=== PATIENT | female | born 1940 | race Hispanic/Latino ===

== ENCOUNTER 2017-08-03 17:41 | Emergency (ER) | payer MEDICARE, OTHER ==
[2017-08-03 17:41] VITALS: BMI 34.4
[2017-08-03 17:57] VITALS: BP 157/74; PULSE 64; RESP 18; TEMP 98.2; O2SAT 99
--- NOTE | 2017-08-03 18:32 | ED PDOC ---
Lower Extremity Pain/Injury Time Seen by Provider: 08/03/17 18:06 Chief Complaint (Nursing): Lower Extremity Problem/Injury Chief Complaint (Provider): Leg pain History Per: Patient Additional Complaint(s): c/o left pain, specifically to knee, and swelling x 1 day. Denies trauma. No fever or chills. Known hx of arthritis Past Medical History Reviewed: Historical Data, Nursing Documentation, Vital Signs Vital Signs: Last Vital Signs Temp 98.2 F 08/03/17 17:54 Pulse 64 08/03/17 17:54 Resp 18 08/03/17 17:54 BP 157/74 H 08/03/17 17:54 Pulse Ox 99 08/03/17 17:54 - Medical History PMH: Alzheimer's Disease, Arthritis, Asthma, Bronchitis, COPD, Dementia, Depression, Diabetes, HTN, Hypercholesterolemia Denies: Hepatitis, HIV, Chronic Kidney Disease, Seizures, Sexually Transmitted Disease - Surgical History Surgical History: Appendectomy, Cholecystectomy, (x4) - Family History Family History: States: Unknown Family Hx - Living Arrangements Living Arrangements: With Family - Social History Current smoker - smoking cessation education provided: No Alcohol: None Drugs: Denies - Immunization History Hx Influenza Vaccination: Yes (04/18/15) Hx Pneumococcal Vaccination: Yes (06/19/13) - Home Medications Home Medications: Ambulatory Orders Medication Instructions Recorded Albuterol 0.083% [Albuterol 0.083% 3 ml IH Q6H PRN 02/06/15 Inhal Isabell (2.5 mg/3 ml) UD] Omeprazole 20 mg PO DAILY 06/21/15 Acetaminophen [Tylenol 325mg tab] 650 mg PO Q6 PRN #0 tab 07/03/15 Insulin Detemir [Levemir] 20 units SC HS #0 vial 07/03/15 Diphenhydramine Hydrochlorid 25 mg PO Q8 PRN 07/09/15 [Benadryl] Aluminum Magnesium 30 ml PO Q4 PRN 07/12/15 Hydroxide/Simethicone 30 M Magnesium Hydroxide [Milk Of 400 mg PO DAILY PRN 07/12/15 Magnesia] Aspirin [Aspirin Chewable] 81 mg PO DAILY 07/15/15 Fluticasone/Salmeterol 250/50 1 puff IH Q12 07/16/15 [Advair Diskus 250/50] Aspirin [Aspirin Chewable] 81 mg PO DAILY #0 chew 07/25/15 Atorvastatin [Lipitor] 10 mg PO HS #0 tab 07/25/15 Bisoprolol [Zebeta] 5 mg PO DAILY #0 tab 07/25/15 Cholecalciferol [Vitamin D 1000 IU] 1,000 iu PO DAILY #0 tab 07/25/15 DULoxetine [Cymbalta] 60 mg PO DAILY #0 ecc 07/25/15 Fluticasone/Salmeterol 250/50 1 puff IH Q12 #0 puff 07/25/15 [Advair Diskus 250/50] Insulin Detemir [Levemir] 20 units SC HS #0 vial 07/25/15 LORazepam [Ativan] 1 mg PO TID PRN #0 tab 07/25/15 Pantoprazole [Protonix EC Tab] 40 mg PO DAILY #0 ect 07/25/15 Risperidone [Risperdal M-TAB] 1 mg PO HS #0 odt 07/25/15 Cephalexin [cephalexin] 500 mg PO BID #20 cap 03/02/16 Ibuprofen [Motrin] 600 mg PO Q6 #20 tab 08/03/17 - Allergies Allergies/Adverse Reactions: Allergies Allergy/AdvReac Type Severity Reaction Status Date / Time No Known Allergies Allergy Verified 07/15/15 21:47 Review of Systems ROS Statement: Except As Marked, All Systems Reviewed And Found Negative Musculoskeletal: Positive for: Leg Pain Physical Exam - Reviewed Nursing Documentation Reviewed: Yes Vital Signs Reviewed: Yes - Physical Exam Appears: Positive for: Well, Non-toxic, No Acute Distress Head Exam: Positive for: ATRAUMATIC, NORMAL INSPECTION, NORMOCEPHALIC Skin: Positive for: Normal Color, Warm, DRY Eye Exam: Positive for: EOMI, Normal appearance, PERRL ENT: Positive for: Normal ENT Inspection Neck: Positive for: Normal, Painless ROM Cardiovascular/Chest: Positive for: Regular Rate, Rhythm Respiratory: Positive for: CNT, Normal Breath Sounds Gastrointestinal/Abdominal: Positive for: Normal Exam, Bowel Sounds, Soft Back: Positive for: Normal Inspection Extremity: Positive for: Normal ROM, Other (no erythema or ecchymosis). Negative for: Tenderness, Deformity, Swelling Neurologic/Psych: Positive for: Alert, Oriented - ECG O2 Sat by Pulse Oximetry: 99 Medical Decision Making Medical Decision Making: Pt medicated with Tylenol PO, reports pain improved after medications. XR IMPRESSION: No fracture or dislocation. Limited examination. 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 US IMPRESSION: No evidence of deep venous thrombosis in either leg. Disposition - Clinical Impression Clinical Impression: Knee pain - Patient ED Disposition Is Patient to be Admitted: No - Disposition Disposition: Routine/Home Disposition Time: 20:00 Condition: STABLE Prescriptions: Ibuprofen [Motrin] 600 mg PO Q6 #20 tab Instructions: Arthralgia (ED) Forms: [facility] (Swiss) Print Language: HUNGARIAN
--- NOTE | 2017-08-03 20:47 | US ---
EXAM: US Duplex Bilateral Lower Extremity Veins EXAM DATE/TIME: 08/03/2017 6:21 PM CLINICAL HISTORY: 77 years old, female; Pain; Leg, lower; Bilateral TECHNIQUE: Real-time ultrasound scan of the veins of the bilateral lower extremities with color Doppler flow, spectral waveform analysis and compression. COMPARISON: No relevant prior studies available. FINDINGS: Normal-appearing compressibility, flow and augmentation response are seen within the common femoral, femoral and popliteal veins bilaterally. Normal flow and augmentation response are seen in the posterior tibial veins bilaterally. IMPRESSION: No evidence of deep venous thrombosis in either leg.
--- NOTE | 2017-08-04 13:09 | RAD ---
PROCEDURE: Bilateral Knee Radiographs. HISTORY: pain COMPARISON: None. FINDINGS: Examination technically limited. BONES: Right Knee: Normal. No fracture. Left Knee: Normal. No fracture. JOINTS: Right Knee: Limited evaluation. 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 No articular erosion. Left knee: Limited evaluation. 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 No articular erosion. SOFT TISSUES: Right Knee: Normal. Left Knee: Normal. JOINT EFFUSION: Right Knee: None. Left Knee: None. OTHER FINDINGS: None. IMPRESSION: No fracture or dislocation. Limited examination. 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
== END 2017-08-03 20:33 | disposition home or self-care (01) ==
LOC: H.ER 17:41
DX: M17.12 Unilateral primary osteoarthritis, left knee (principal); F02.80 Dementia in other diseases classified elsewhere, unspecified severity, without behavioral disturbance, psychotic disturbance, mood disturbance, and anxiety; G30.9 Alzheimer's disease, unspecified; J44.9 Chronic obstructive pulmonary disease, unspecified; E11.9 Type 2 diabetes mellitus without complications; E78.00 Pure hypercholesterolemia, unspecified; F32.9 Major depressive disorder, single episode, unspecified; I10 Essential (primary) hypertension; Z79.4 Long term (current) use of insulin; Z79.82 Long term (current) use of aspirin

== ENCOUNTER 2017-12-27 15:50 | Emergency (ER) | payer MEDICARE, OTHER ==
[2017-12-27 15:50] VITALS: BMI 34.4
[2017-12-27 15:59] VITALS: PULSE 61; TEMP 98.5; O2SAT 98
--- NOTE | 2017-12-27 16:26 | ED PDOC ---
HPI: Skin/Bite Injury Time Seen by Provider: 12/27/17 16:01 Chief Complaint (Nursing): Abnormal Skin Integrity Chief Complaint (Provider): Skin rash History Per: Family History/Exam Limitations: clinical condition (patient with dementia) Onset/Duration Of Symptoms: Days Current Symptoms Are (Timing): Still Present Location Of Injury: Right: Back, Chest Quality Of Symptoms: Painful Additional Complaint(s): 77yo female with history of dementia, brought to ER by daughter for evaluation of a painful rash on the right upper chest and right back, which she noted on the patient this morning. She denies any fever, chills, or other complaints from the patient. Past Medical History Reviewed: Historical Data, Nursing Documentation, Vital Signs Vital Signs: Last Vital Signs Temp 98.5 F 12/27/17 15:56 Pulse 61 12/27/17 16:42 Resp 18 12/27/17 16:42 BP 150/56 L 12/27/17 16:42 Pulse Ox 98 12/27/17 16:42 - Medical History PMH: Alzheimer's Disease, Arthritis, Asthma, Bronchitis, COPD, Dementia, Depression, Diabetes, HTN, Hypercholesterolemia Denies: Hepatitis, HIV, Chronic Kidney Disease, Seizures, Sexually Transmitted Disease - Surgical History Surgical History: Appendectomy, Cholecystectomy, (x4) - Family History Family History: States: Unknown Family Hx - Living Arrangements Living Arrangements: With Family - Immunization History Hx Influenza Vaccination: Yes (04/18/15) Hx Pneumococcal Vaccination: Yes (06/19/13) - Home Medications Home Medications: Ambulatory Orders Medication Instructions Recorded Albuterol 0.083% [Albuterol 0.083% 3 ml IH Q6H PRN 02/06/15 Inhal Isabell (2.5 mg/3 ml) UD] Omeprazole 20 mg PO DAILY 06/21/15 Acetaminophen [Tylenol 325mg tab] 650 mg PO Q6 PRN #0 tab 07/03/15 Insulin Detemir [Levemir] 20 units SC HS #0 vial 07/03/15 Diphenhydramine Hydrochlorid 25 mg PO Q8 PRN 07/09/15 [Benadryl] Aluminum Magnesium 30 ml PO Q4 PRN 07/12/15 Hydroxide/Simethicone 30 M Magnesium Hydroxide [Milk Of 400 mg PO DAILY PRN 07/12/15 Magnesia] Aspirin [Aspirin Chewable] 81 mg PO DAILY 07/15/15 Fluticasone/Salmeterol 250/50 1 puff IH Q12 07/16/15 [Advair Diskus 250/50] Aspirin [Aspirin Chewable] 81 mg PO DAILY #0 chew 07/25/15 Atorvastatin [Lipitor] 10 mg PO HS #0 tab 07/25/15 Bisoprolol [Zebeta] 5 mg PO DAILY #0 tab 07/25/15 Cholecalciferol [Vitamin D 1000 IU] 1,000 iu PO DAILY #0 tab 07/25/15 DULoxetine [Cymbalta] 60 mg PO DAILY #0 ecc 07/25/15 Fluticasone/Salmeterol 250/50 1 puff IH Q12 #0 puff 07/25/15 [Advair Diskus 250/50] Insulin Detemir [Levemir] 20 units SC HS #0 vial 07/25/15 LORazepam [Ativan] 1 mg PO TID PRN #0 tab 07/25/15 Pantoprazole [Protonix EC Tab] 40 mg PO DAILY #0 ect 07/25/15 Risperidone [Risperdal M-TAB] 1 mg PO HS #0 odt 07/25/15 Cephalexin [cephalexin] 500 mg PO BID #20 cap 03/02/16 Ibuprofen [Motrin] 600 mg PO Q6 #20 tab 08/03/17 Valacyclovir HCl [Valtrex] 1 gm PO TID 7 Days #21 tablet 12/27/17 - Allergies Allergies/Adverse Reactions: Allergies Allergy/AdvReac Type Severity Reaction Status Date / Time No Known Allergies Allergy Verified 07/15/15 21:47 Review of Systems Review Of Systems: ROS cannot be obtained secondary to pt's inabilty to answer questions. (patient has dementia) Skin: Positive for: Rash Physical Exam - Reviewed Nursing Documentation Reviewed: Yes Vital Signs Reviewed: Yes - Physical Exam Appears: Positive for: Non-toxic, No Acute Distress Head Exam: Positive for: ATRAUMATIC, NORMAL INSPECTION, NORMOCEPHALIC Skin: Positive for: Warm, Dry (vesicular rash along t-1 dermatome), Rash Eye Exam: Positive for: Normal appearance Neck: Positive for: Supple Cardiovascular/Chest: Positive for: Regular Rate, Rhythm Respiratory: Positive for: Normal Breath Sounds Gastrointestinal/Abdominal: Positive for: Soft. Negative for: Tenderness Back: Positive for: Normal Inspection Extremity: Positive for: Normal ROM Neurologic/Psych: Positive for: Alert. Negative for: Motor/Sensory Deficits - ECG O2 Sat by Pulse Oximetry: 98 (RA) Pulse Ox Interpretation: Normal Medical Decision Making Medical Decision Making: Impression: Varicella zoster Plan: -- Patient to be discharged home with Valtrex. Daughter instructed to take patient for a follow up with PMD in 2-3 days. Scribe attestation: Documented by Luz Lewis acting as a scribe for Brittany Torres MD. Provider attestation: All medical record entries made by the Scribe were at my direction and personally dictated by me. I have reviewed the chart and agree that the record accurately reflects my personal performance of the history, physical exam, medical decision making, and the department course for this patient. I have also personally directed, reviewed, and agree with the discharge instructions and disposition. Disposition - Clinical Impression Clinical Impression: Varicella zoster - Patient ED Disposition Is Patient to be Admitted: No - Disposition Referrals: Jon Enciso MD [Family Provider] - Disposition: Routine/Home Disposition Time: 16:27 Condition: STABLE Prescriptions: Valacyclovir HCl [Valtrex] 1 gm PO TID 7 Days #21 tablet Instructions: Shingles Forms: [facility] (Welsh)
[2017-12-27 16:43] VITALS: BP 150/56; RESP 18
== END 2017-12-27 16:40 | disposition home or self-care (01) ==
LOC: H.ER 15:50
DX: B02.9 Zoster without complications (principal); E11.9 Type 2 diabetes mellitus without complications; E78.00 Pure hypercholesterolemia, unspecified; F02.80 Dementia in other diseases classified elsewhere, unspecified severity, without behavioral disturbance, psychotic disturbance, mood disturbance, and anxiety; F32.9 Major depressive disorder, single episode, unspecified; G30.9 Alzheimer's disease, unspecified; I10 Essential (primary) hypertension; J44.9 Chronic obstructive pulmonary disease, unspecified; Z79.4 Long term (current) use of insulin; Z79.82 Long term (current) use of aspirin

== ENCOUNTER 2018-01-21 16:37 | Inpatient (IN) | payer OTHER ==
[2018-01-21 16:38] VITALS: BMI 34.4
--- NOTE | 2018-01-21 18:09 | ED PDOC ---
HPI: CCC, URI, Sore Throat Time Seen by Provider: 01/21/18 17:24 Chief Complaint (Nursing): Weakness/Neurological Deficit Chief Complaint (Provider): Cough History Per: Family (Daughter) History/Exam Limitations: other (Dementia) Additional Complaint(s): Daughter states patient woke up with coughing and congestion today, associated with generalized weakness. Usually patient minimally ambulatory with assistance but today unable to get out of bed. Pt with dementia. Past Medical History Reviewed: Nursing Documentation, Vital Signs Vital Signs: Last Vital Signs Temp 99.2 F 01/21/18 22:31 Pulse 71 01/21/18 16:41 Resp 18 01/21/18 16:41 BP 153/68 H 01/21/18 16:41 Pulse Ox 98 01/21/18 18:10 - Medical History PMH: Alzheimer's Disease, Arthritis, Asthma, Bronchitis, COPD, Dementia, Depression, Diabetes, HTN, Hypercholesterolemia Denies: Hepatitis, HIV, Chronic Kidney Disease, Seizures, Sexually Transmitted Disease - Surgical History Surgical History: Appendectomy, Cholecystectomy, (x4) - Family History Family History: States: Unknown Family Hx - Immunization History Hx Influenza Vaccination: Yes (04/18/15) Hx Pneumococcal Vaccination: Yes (06/19/13) - Home Medications Home Medications: Ambulatory Orders Medication Instructions Recorded Albuterol 0.083% [Albuterol 0.083% 3 ml IH Q6H PRN 02/06/15 Inhal Isabell (2.5 mg/3 ml) UD] Omeprazole 20 mg PO DAILY 06/21/15 Acetaminophen [Tylenol 325mg tab] 650 mg PO Q6 PRN #0 tab 07/03/15 Insulin Detemir [Levemir] 20 units SC HS #0 vial 07/03/15 Diphenhydramine Hydrochlorid 25 mg PO Q8 PRN 07/09/15 [Benadryl] Aluminum Magnesium 30 ml PO Q4 PRN 07/12/15 Hydroxide/Simethicone 30 M Magnesium Hydroxide [Milk Of 400 mg PO DAILY PRN 07/12/15 Magnesia] Aspirin [Aspirin Chewable] 81 mg PO DAILY 07/15/15 Fluticasone/Salmeterol 250/50 1 puff IH Q12 07/16/15 [Advair Diskus 250/50] Aspirin [Aspirin Chewable] 81 mg PO DAILY #0 chew 07/25/15 Atorvastatin [Lipitor] 10 mg PO HS #0 tab 07/25/15 Bisoprolol [Zebeta] 5 mg PO DAILY #0 tab 07/25/15 Cholecalciferol [Vitamin D 1000 IU] 1,000 iu PO DAILY #0 tab 07/25/15 DULoxetine [Cymbalta] 60 mg PO DAILY #0 ecc 07/25/15 Fluticasone/Salmeterol 250/50 1 puff IH Q12 #0 puff 07/25/15 [Advair Diskus 250/50] Insulin Detemir [Levemir] 20 units SC HS #0 vial 07/25/15 LORazepam [Ativan] 1 mg PO TID PRN #0 tab 07/25/15 Pantoprazole [Protonix EC Tab] 40 mg PO DAILY #0 ect 07/25/15 Risperidone [Risperdal M-TAB] 1 mg PO HS #0 odt 07/25/15 Cephalexin [cephalexin] 500 mg PO BID #20 cap 03/02/16 Ibuprofen [Motrin] 600 mg PO Q6 #20 tab 08/03/17 Valacyclovir HCl [Valtrex] 1 gm PO TID 7 Days #21 tablet 12/27/17 - Allergies Allergies/Adverse Reactions: Allergies Allergy/AdvReac Type Severity Reaction Status Date / Time No Known Allergies Allergy Verified 01/21/18 16:41 Review of Systems Review Of Systems: ROS cannot be obtained secondary to pt's inabilty to answer questions. Physical Exam - Reviewed Nursing Documentation Reviewed: Yes Vital Signs Reviewed: Yes - Physical Exam Appears: Positive for: Well, No Acute Distress Skin: Positive for: Normal Color, Warm, Dry Eye Exam: Positive for: Normal appearance, EOMI, PERRL Cardiovascular/Chest: Positive for: Regular Rate, Rhythm Respiratory: Positive for: Normal Breath Sounds. Negative for: Rales, Rhonchi, Wheezing Gastrointestinal/Abdominal: Positive for: Normal Exam, Bowel Sounds, Soft. Negative for: Tenderness Neurologic/Psych: Positive for: Alert, corporate relations manager II-XII (Grossly intact). Negative for: Oriented, Facial Droop - Laboratory Results Result Diagrams: 01/21/18 18:13 01/21/18 18:13 - ECG O2 Sat by Pulse Oximetry: 98 Medical Decision Making Medical Decision Makin yo female with cough and generalized weakness. - labs - EKG - CXR - IVF Accession No. : [id number] Patient Name / ID : BRANDO OLMOS / [id number] Exam Date : 01/21/2018 17:54:48 ( Approved ) Study Comment : Sex / Age : F / [id number] Creator : kacy herman Dictator : Gibran Prabhakar MD Shoe Cleaner : Vamp Seamer : Gibran Prabhakar MD Approver2 : Report Date : 01/21/2018 18:14:19 My Comment : HISTORY: Cough COMPARISON: Chest radiograph dated 07/24/2015. FINDINGS: LUNGS: Stable chronic prominence of the bilateral interstitial markings. No focal consolidation. PLEURA: No significant pleural effusion identified, no pneumothorax apparent. CARDIOVASCULAR: Atherosclerotic aortic calcifications. Cardiomediastinal silhouette stably enlarged. OSSEOUS STRUCTURES: Unchanged. VISUALIZED UPPER ABDOMEN: Normal. OTHER FINDINGS: None. IMPRESSION: Stable chronic prominence of the bilateral interstitial markings. No focal consolidation or pleural effusion. Disposition - Clinical Impression Clinical Impression: Generalized muscle weakness, Bronchitis, Fever - Patient ED Disposition Is Patient to be Admitted: Yes - Disposition Disposition Time: 22:50 Condition: STABLE Instructions: Weakness (ED) Forms: [employer] (Khmer) - Pt Status Changed To: Hospital Disposition Of: Inpatient - Admit Certification Admit to Inpatient:: After my assessment, the patient will require hospitalization for at least two midnights. This is because of the severity of symptoms shown, intensity of services needed, and/or the medical risk in this patient being treated as an outpatient. - POA Present On Arrival: Poor Glycemic Control
[2018-01-21] MEDS ORDERED: Sodium Chloride 0.9% 1,000 ML IV STA (18:10)
--- NOTE | 2018-01-21 18:20 | RAD ---
HISTORY: Cough COMPARISON: Chest radiograph dated 07/24/2015. FINDINGS: LUNGS: Stable chronic prominence of the bilateral interstitial markings. No focal consolidation. PLEURA: No significant pleural effusion identified, no pneumothorax apparent. CARDIOVASCULAR: Atherosclerotic aortic calcifications. Cardiomediastinal silhouette stably enlarged. OSSEOUS STRUCTURES: Unchanged. VISUALIZED UPPER ABDOMEN: Normal. OTHER FINDINGS: None. IMPRESSION: Stable chronic prominence of the bilateral interstitial markings. No focal consolidation or pleural effusion.
[2018-01-21 19:14] LABS: ALB/GLOB RATIO 1.1 (1.0-2.1); ALBUMIN 3.8 g/dL (3.5-5.0); GFR AFRICAN-AMERICAN > 60; GFR NON-AFRICAN AMERICAN > 60
[2018-01-21 19:15] LABS: ALT/SGPT 29 U/L (9-52); AST/SGOT 29 U/L (14-36); BLOOD UREA NITROGEN 13 mg/dl (7-17)
[2018-01-21 19:22] LABS: BASO # 0.1 K/uL (0.0-0.2); BASO % 1.4 % (0.0-2.0); EOS # 0.3 K/uL (0.0-0.7); EOS % 3.2 % (0.0-4.0); HEMOGLOBIN 13.8 g/dL (12.0-16.0); LYMPH # 1.8 K/uL (1.0-4.3); LYMPH % 20.1 % (20.0-40.0); MEAN CELL VOLUME 93.5 fl (81.0-99.0); MEAN CORPUSCULAR HGB CONC 33.2 g/dL (33.0-37.0); MEAN PLATELET VOLUME 11.5 fl (7.2-11.7); MONO # 0.9 K/uL (0.0-0.8); NEUT % 65.3 % (50.0-75.0); NRBC % 0.1 % (0.0-0.0); RBC 4.46 Mil/uL (3.80-5.20); RED CELL DISTRIBUTION WIDTH 13.6 % (11.5-14.5); WHITE BLOOD COUNT 9.1 K/uL (4.8-10.8)
[2018-01-21] MEDS ORDERED: Insulin Regular 100 units/ml IV STA (19:44)
[2018-01-21 20:10] LABS: PARTIAL THROMBOPLASTIN TIME 30.9 Seconds (25.6-37.1); PROTHROMBIN TIME 11.4 Seconds (9.8-13.1)
[2018-01-21] MEDS ORDERED: Insulin Regular 100 units/ml ONE (20:59)
[2018-01-21] MEDS ORDERED: Azithromycin 500 MG in Sodium Chloride 0.9% 250 ML IV STA (22:45)
[2018-01-21 22:54] LABS: SQUAMOUS EPITHIAL < 1 /hpf (0-5); URINE BILIRUBIN NEGATIVE (NEGATIVE); URINE BLOOD NEGATIVE (NEGATIVE); URINE CLARITY CLEAR (Clear); URINE COLOR YELLOW (YELLOW); URINE GLUCOSE (UA) >=500 mg/dL (Normal); URINE LEUKOCYTE ESTERASE NEG Leu/uL (Negative); URINE PROTEIN NEGATIVE (NEGATIVE); URINE UROBILINOGEN 0.2-1.0 mg/dL (0.2-1.0)
[2018-01-21] MEDS ORDERED: Azithromycin 500 MG IV IVPB ONE (23:40)
[2018-01-22] MEDS ORDERED: Albuterol 0.083% Inhal Sol (2.5 mg/3 mL) UD IH PRN (11:17)
[2018-01-22] MEDS: Enoxaparin 40 mg Syringe SC SCH (12:25)
[2018-01-22] MEDS: Insulin Lispro (humaLOG) 100 Units/ml Inj SC SCH ×3 (12:25→22:27)
[2018-01-22] MEDS: Risperidone M TAB 2 MG PO SCH (21:13)
[2018-01-22] MEDS: Fluticasone-Salmeterol 250-50mcg Diskus IH SCH (21:37)
--- NOTE | 2018-01-22 22:24 | HP ---
CHIEF COMPLAINT: Coughing, congested and altered mental status. HISTORY OF PRESENT ILLNESS: This is a 77-year-old female with advanced dementia who is usually very noncommunicative but usually able to ambulate a little bit and follows commands and eats by herself who was found by family with change in mental status and did not want to get out of bed and also was noted to be coughing and congested, so the patient was brought to the emergency room and was admitted for further management. The patient is a very poor historian and review of systems is not available. PAST MEDICAL HISTORY: Significant for hypertension, diabetes, elevated cholesterol, advanced dementia. PAST SURGICAL HISTORY: Unremarkable. PERSONAL HISTORY: The patient is nonsmoker, nondrinker. No substance abuse and dependent on family members for her ADLs. ALLERGIES: THE PATIENT IS NOT ALLERGIC TO ANY MEDICATION. MEDICATIONS: The patient is on multiple medications which are as per reconciliation sheet which are reviewed and ordered. FAMILY HISTORY: Noncontributory. PHYSICAL EXAMINATION: GENERAL: Well-built, well-nourished elderly 77-year-old female with advanced dementia, essentially non-communicative, not in any acute distress. VITAL SIGNS: Temperature 98.5, pulse 73, respirations 19, blood pressure 137/74, saturation 97%. HEENT: Pupils reacting to light. No JVD. No thyromegaly. No lymphadenopathy. No nystagmus. Normocephalic, atraumatic skull. HEART: S1 and S2, normal and regular. No significant murmur, gallop, or rub is heard. LUNGS: Show good bilateral air exchange. No rales or rhonchi. ABDOMEN: Soft, nontender. No organomegaly. No fluids. Bowel sounds are plus and normal. No sign of acute abdomen. No guarding, no rigidity, no rebound. EXTREMITIES: No edema. No calf swelling. No tenderness . No acute ischemia. WATERWORKS CHIEF ENGINEER: Essentially unchanged from the patient's initial exam or maybe she is a little bit less responsive over the thorough WATERWORKS CHIEF ENGINEER exam. It is not possible to be done on this patient due to advanced dementia. DIAGNOSTIC DATA: Available diagnostic data reviewed. WBC 9.1, hemoglobin 13.8, hematocrit 41.7, platelets 193. PT and PTT are unremarkable. Sodium 136, potassium 4.3, chloride 101, bicarb 23, BUN 13, creatinine 0.6. Accu-Cheks are 277, 276, and 221. SMA-7 otherwise is unremarkable. Urinalysis is clean. Chest x-ray is clear without any acute consolidation. EKG shows normal sinus rhythm without any acute ST-T changes. ADMITTING IMPRESSION: Acute altered mental status, possibly acute bronchitis, type 2 diabetes with hyperglycemia, hypertension, elevated cholesterol, advanced dementia. PLAN: As ordered. Case and plan discussed with the patient's family. Jon Enciso MD
[2018-01-22] MEDS: Insulin Detemir 100 Units/ml Inj SC SCH (22:28)
[2018-01-23 07:48] LABS: HEMOGLOBIN 12.8 g/dL (12.0-16.0); MEAN CELL VOLUME 90.9 fl (81.0-99.0); MEAN CORPUSCULAR HEMOGLOBIN 31.2 pg (27.0-31.0); MEAN CORPUSCULAR HGB CONC 34.3 g/dL (33.0-37.0); RBC 4.12 Mil/uL (3.80-5.20); RED CELL DISTRIBUTION WIDTH 12.8 % (11.5-14.5); WHITE BLOOD COUNT 8.5 K/uL (4.8-10.8)
[2018-01-23] MEDS: Insulin Lispro (humaLOG) 100 Units/ml Inj SC SCH ×4 (08:08→22:00)
[2018-01-23 08:22] LABS: ALBUMIN 3.4 g/dL (3.5-5.0); ALT/SGPT 24 U/L (9-52); AST/SGOT 18 U/L (14-36); BLOOD UREA NITROGEN 11 mg/dl (7-17); CALCIUM 8.9 mg/dL (8.4-10.2); GFR AFRICAN-AMERICAN > 60; GFR NON-AFRICAN AMERICAN > 60
[2018-01-23] MEDS: Fluticasone-Salmeterol 250-50mcg Diskus IH SCH ×2 (09:21→21:38)
[2018-01-23] MEDS: Cholecalciferol 1,000 INTLU TAB PO SCH (09:21)
[2018-01-23] MEDS: Enoxaparin 40 mg Syringe SC SCH (09:21)
[2018-01-23] MEDS: Pantoprazole 40 mg EC Tab PO SCH (09:21)
--- NOTE | 2018-01-23 12:56 | PN ---
DATE: 01/23/2018 SUBJECTIVE: The patient is seen and examined. Interim events noted. The patient remains in regular medical floor. The patient is not able to provide informative history or review of systems. No specific issue reported by nursing staff. The patient has very good appetite. PHYSICAL EXAMINATION: GENERAL: The patient is in no acute distress. VITAL SIGNS: Stable. HEART: S1 and S2, normal and regular. LUNGS: Good bilateral air exchange. ABDOMEN: Soft and nontender. EXTREMITIES: No edema. No calf swelling. No tenderness. No acute ischemia. BOX MAKER: Exam is essentially unchanged. DIAGNOSTIC DATA: Available diagnostic data reviewed. Culture remains negative. ASSESSMENT AND PLAN: Overall, the patient's general medical condition is stable and improving. Plan as ordered. Jon Enciso MD
[2018-01-23] MEDS: Risperidone M TAB 2 MG PO SCH (21:39)
[2018-01-23] MEDS: Insulin Detemir 100 Units/ml Inj SC SCH (22:21)
[2018-01-24 06:15] LABS: HEMOGLOBIN 12.7 g/dL (12.0-16.0); MEAN CELL VOLUME 90.5 fl (81.0-99.0); MEAN CORPUSCULAR HEMOGLOBIN 31.3 pg (27.0-31.0); MEAN CORPUSCULAR HGB CONC 34.5 g/dL (33.0-37.0); RBC 4.06 Mil/uL (3.80-5.20); RED CELL DISTRIBUTION WIDTH 12.6 % (11.5-14.5); WHITE BLOOD COUNT 9.1 K/uL (4.8-10.8)
[2018-01-24 06:21] LABS: ALBUMIN 3.4 g/dL (3.5-5.0); ALT/SGPT 26 U/L (9-52); AST/SGOT 20 U/L (14-36); BLOOD UREA NITROGEN 12 mg/dl (7-17); CALCIUM 9.1 mg/dL (8.4-10.2); GFR AFRICAN-AMERICAN > 60; GFR NON-AFRICAN AMERICAN > 60
[2018-01-24] MEDS: Enoxaparin 40 mg Syringe SC SCH (08:57)
[2018-01-24] MEDS: Fluticasone-Salmeterol 250-50mcg Diskus IH SCH ×2 (08:57→22:08)
[2018-01-24] MEDS: Cholecalciferol 1,000 INTLU TAB PO SCH (08:57)
[2018-01-24] MEDS: Pantoprazole 40 mg EC Tab PO SCH (08:58)
[2018-01-24] MEDS: Insulin Lispro (humaLOG) 100 Units/ml Inj SC SCH ×4 (09:00→22:09)
--- NOTE | 2018-01-24 10:20 | CARD ---
APPROVED REPORT EKG Measurement Heart [id number] <Conclusion> Normal sinus rhythm Normal ECG
[2018-01-24] MEDS: Risperidone M TAB 2 MG PO SCH (18:18)
[2018-01-24] MEDS: Insulin Detemir 100 Units/ml Inj SC SCH (22:09)
[2018-01-25] MEDS: Fluticasone-Salmeterol 250-50mcg Diskus IH SCH ×2 (08:54→09:00)
[2018-01-25] MEDS: Enoxaparin 40 mg Syringe SC SCH (08:54)
[2018-01-25] MEDS: Pantoprazole 40 mg EC Tab PO SCH (08:55)
[2018-01-25] MEDS: Cholecalciferol 1,000 INTLU TAB PO SCH (08:55)
[2018-01-25] MEDS: Insulin Lispro (humaLOG) 100 Units/ml Inj SC SCH ×3 (08:56→17:24)
--- NOTE | 2018-01-25 09:50 | PN ---
DATE: 01/24/2018 SUBJECTIVE: The patient is seen and examined. Interim events noted. The patient remains in regular medical floor. The patient is not able to provide informative history or review of systems. PHYSICAL EXAMINATION: GENERAL: The patient is in no acute distress. VITAL SIGNS: Stable. HEART: S1 and S2, normal and regular. LUNGS: Good bilateral air exchange. ABDOMEN: Soft, nontender. EXTREMITIES: No edema. No calf swelling. No tenderness. No acute ischemia. AUTOMOBILE BODY WORKER: Exam is essentially unchanged. DIAGNOSTIC DATA: Available diagnostic data reviewed. ASSESSMENT AND PLAN: Overall, the patient's general medical condition is stable. Plan as ordered. Jon Enciso MD
--- NOTE | 2018-01-25 13:41 | PN ---
DATE: 01/25/2018 SUBJECTIVE: The patient seen and examined. Interim events noted. The patient remains in regular medical floor, more awake and responsive, to her normal status. Not able to provide any informative history or review of systems. PHYSICAL EXAMINATION: GENERAL: The patient is in no acute distress. VITAL SIGNS: Stable. HEART: S1 and S2, normal and regular. LUNGS: Good bilateral air exchange. ABDOMEN: Soft, nontender. EXTREMITIES: No edema. No calf swelling. No tenderness. No acute ischemia. STEAMBOAT INSPECTOR: Exam is essentially unchanged. DIAGNOSTIC DATA: Available diagnostic data reviewed. ASSESSMENT AND PLAN: Overall, the patient is clinically stable and improving. The patient will have physical therapy evaluation. May need some acute rehab. Plan as ordered. Case and plan are discussed with the patient's family over phone yesterday. Jon Enciso MD
[2018-01-25 16:43] VITALS: BP 132/56; PULSE 72; RESP 20; TEMP 99; O2SAT 97
[2018-01-25] MEDS ORDERED: Risperidone M TAB 2 MG PO SCH (17:00)
== END 2018-01-25 18:10 | DRG 202 ==
LOC: H.ER 16:37 → H.ERHOLD 22:49 → H.MEDSURG1 01-22 00:15
PROVIDERS: ADMIT Internal Medicine; ATTEND Internal Medicine
DX: J20.9 Acute bronchitis, unspecified (principal); J44.0 Chronic obstructive pulmonary disease with (acute) lower respiratory infection; F02.80 Dementia in other diseases classified elsewhere, unspecified severity, without behavioral disturbance, psychotic disturbance, mood disturbance, and anxiety; G30.9 Alzheimer's disease, unspecified; M19.90 Unspecified osteoarthritis, unspecified site; F32.9 Major depressive disorder, single episode, unspecified; E11.65 Type 2 diabetes mellitus with hyperglycemia; E78.00 Pure hypercholesterolemia, unspecified; I10 Essential (primary) hypertension

== ENCOUNTER 2018-03-23 17:25 | Emergency (ER) | payer MEDICARE, OTHER ==
[2018-03-23 17:25] VITALS: BMI 34.4
--- NOTE | 2018-03-23 18:35 | ED PDOC ---
HPI: Abdomen Time Seen by Provider: 03/23/18 18:07 Chief Complaint (Nursing): GI Problem History Per: Family History/Exam Limitations: physical impairment Onset/Duration Of Symptoms: Days (2) Outside of [place] travel?: No Current Symptoms Are (Timing): Still Present Severity: Moderate Location Of Pain/Discomfort: Diffuse Quality Of Discomfort: Unable To Describe Associated Symptoms: Constipation. denies: Fever, Nausea, Diarrhea, Urinary Symptoms Exacerbating Factors: None Alleviating Factors: None Additional History Per: Family Past Medical History Reviewed: Historical Data, Nursing Documentation, Vital Signs Vital Signs: Last Vital Signs Temp 98.5 F 03/23/18 20:48 Pulse 70 03/23/18 20:48 Resp 17 03/23/18 20:48 BP 142/74 03/23/18 20:48 Pulse Ox 98 03/23/18 20:48 - Medical History PMH: Alzheimer's Disease, Arthritis, Asthma, Bronchitis, COPD, Dementia, Depression, Diabetes, HTN, Hypercholesterolemia Denies: Hepatitis, HIV, Chronic Kidney Disease, Seizures, Sexually Transmitted Disease - Surgical History Surgical History: Appendectomy, Cholecystectomy, (x4) - Family History Family History: States: Unknown Family Hx - Immunization History Hx Tetanus Toxoid Vaccination: No Hx Influenza Vaccination: Yes (04/18/15) Hx Pneumococcal Vaccination: Yes (06/19/13) - Home Medications Home Medications: Ambulatory Orders Medication Instructions Recorded Albuterol 0.083% [Albuterol 0.083% 3 ml IH Q6H PRN 02/06/15 Inhal Isabell (2.5 mg/3 ml) UD] Omeprazole 20 mg PO DAILY 06/21/15 Acetaminophen [Tylenol 325mg tab] 650 mg PO Q6 PRN #0 tab 07/03/15 Insulin Detemir [Levemir] 20 units SC HS #0 vial 07/03/15 Magnesium Hydroxide [Milk Of 400 mg PO DAILY PRN 07/12/15 Magnesia] Aspirin [Aspirin Chewable] 81 mg PO DAILY 07/15/15 Fluticasone/Salmeterol 250/50 1 puff IH Q12 07/16/15 [Advair Diskus 250/50] Atorvastatin [Lipitor] 10 mg PO HS #0 tab 07/25/15 Bisoprolol [Zebeta] 5 mg PO DAILY #0 tab 07/25/15 Cholecalciferol [Vitamin D 1000 IU] 1,000 iu PO DAILY #0 tab 07/25/15 DULoxetine [Cymbalta] 60 mg PO DAILY #0 ecc 07/25/15 Fluticasone/Salmeterol 250/50 1 puff IH Q12 #0 puff 07/25/15 [Advair Diskus 250/50] Insulin Detemir [Levemir] 20 units SC HS #0 vial 07/25/15 LORazepam [Ativan] 1 mg PO TID PRN #0 tab 07/25/15 Pantoprazole [Protonix EC Tab] 40 mg PO DAILY #0 ect 07/25/15 Risperidone [Risperdal M-TAB] 1 mg PO HS #0 odt 07/25/15 - Allergies Allergies/Adverse Reactions: Allergies Allergy/AdvReac Type Severity Reaction Status Date / Time No Known Allergies Allergy Verified 01/21/18 16:41 Review of Systems Review Of Systems: ROS cannot be obtained secondary to pt's inabilty to answer questions. Physical Exam - Reviewed Nursing Documentation Reviewed: Yes Vital Signs Reviewed: Yes - Physical Exam Appears: Positive for: Non-toxic, No Acute Distress Head Exam: Positive for: ATRAUMATIC, NORMAL INSPECTION Skin: Positive for: Warm, Dry Eye Exam: Positive for: EOMI, PERRL ENT: Positive for: Normal ENT Inspection Neck: Positive for: Painless ROM, Supple Cardiovascular/Chest: Positive for: Regular Rate, Rhythm. Negative for: Tachycardia Respiratory: Positive for: Normal Breath Sounds. Negative for: Rales, Rhonchi, Wheezing Gastrointestinal/Abdominal: Positive for: Soft. Negative for: Tenderness Back: Positive for: Normal Inspection Rectal: Positive for: Normal Exam Extremity: Positive for: Normal ROM Neurologic/Psych: Positive for: Alert, Aphasia (at baseline). Negative for: Oriented (at baseline) - Laboratory Results Result Diagrams: 03/23/18 18:43 03/23/18 18:43 - ECG O2 Sat by Pulse Oximetry: 97 Disposition - Clinical Impression Clinical Impression: Constipation - Patient ED Disposition Is Patient to be Admitted: Transfer of Care Counseled Patient/Family Regarding: Studies Performed, Diagnosis - Disposition Referrals: Jon Enciso MD [Family Provider] - Disposition: Transfer of Care Disposition Time: 19:00 Condition: STABLE Instructions: Constipation in Adults Patient Signed Over To: Cornelius Restrepo
[2018-03-23 18:49] LABS: BASO % 0.4 % (0.0-2.0); EOS # 0.2 K/uL (0.0-0.7); EOS % 3.2 % (0.0-4.0); HEMOGLOBIN 12.6 g/dL (12.0-16.0); LYMPH % 36.3 % (20.0-40.0); MEAN CELL VOLUME 87.5 fl (81.0-99.0); MEAN CORPUSCULAR HGB CONC 34.3 g/dL (33.0-37.0); MEAN PLATELET VOLUME 9.5 fl (7.2-11.7); MONO # 0.4 K/uL (0.0-0.8); MONO % 7.9 % (0.0-10.0); NEUT # 2.8 K/uL (1.8-7.0); NEUT % 52.2 % (50.0-75.0); NRBC % 0.2 % (0.0-0.0); RBC 4.2 Mil/uL (3.80-5.20); RED CELL DISTRIBUTION WIDTH 14.1 % (11.5-14.5); WHITE BLOOD COUNT 5.4 K/uL (4.8-10.8)
[2018-03-23 18:59] LABS: GFR NON-AFRICAN AMERICAN > 60
[2018-03-23 19:14] LABS: SQUAMOUS EPITHIAL 1 /hpf (0-5); URINE BILIRUBIN NEGATIVE (NEGATIVE); URINE BLOOD NEGATIVE (NEGATIVE); URINE CLARITY SLIGHTY-CLOUDY (Clear); URINE COLOR YELLOW (YELLOW); URINE GLUCOSE (UA) NEG (Normal); URINE LEUKOCYTE ESTERASE NEG Leu/uL (Negative); URINE PROTEIN NEGATIVE (NEGATIVE); URINE UROBILINOGEN 0.2-1.0 mg/dL (0.2-1.0)
[2018-03-23 19:15] LABS: BLOOD UREA NITROGEN 8 mg/dl (7-17)
--- NOTE | 2018-03-23 20:33 | ED PDOC ---
"- Laboratory Results Result Diagrams: 03/23/18 18:43 03/23/18 18:43 - ECG O2 Sat by Pulse Oximetry: 97 Medical Decision Making Medical Decision MakinPM All labs and CT reviewed, all wnl. Stercoral colitis likely secondary to fecal impaction. Advised family to continue bowel regimen with fleets and dulcolax. Recommended followup with GI/PMD if problem persists. Patient well appearing upon discharge. EXAM: CT Abdomen and Pelvis Without Intravenous Contrast EXAM DATE/TIME: 03/23/2018 6:18 PM CLINICAL HISTORY: 78 years old, female; Pain and signs and symptoms; Other: Constipation; Abdominal pain; Generalized; Prior surgery; Surgery date: 6+ months; Surgery type: Appendectomy. Cholecystectomy. x4; Additional info: Abdominal pain constipation TECHNIQUE: Axial computed tomography images of the abdomen and pelvis without intravenous contrast. All CT scans at this facility use at least one of these dose optimization techniques: automated exposure control; mA and/or kV adjustment per patient size (includes targeted exams where dose is matched to clinical indication); or iterative reconstruction. Coronal and sagittal reformatted images were created and reviewed. COMPARISON: No relevant prior studies available. FINDINGS: Limitations: Examination is limited by patient positioning, motion and lack of contrast. Lung bases: Bibasal atelectasis affects the lungs. ABDOMEN: Liver: The liver is unremarkable. Gallbladder and bile ducts: There has been a cholecystectomy. No biliary ductal dilatation. Pancreas: The pancreas is unremarkable. Spleen: The spleen is unremarkable. Adrenals: The adrenal glands are unremarkable. Kidneys and ureters: 3 mm and punctate nonobstructing right renal stones. No hydronephrosis. Stomach and bowel: Fecal impaction of the rectum. Mild perirectal edema suspicious for stercoral colitis. No small bowel dilatation. PELVIS: Appendix: Despite history of an appendectomy, a normal appendix is visualized. Bladder: Urinary bladder is decompressed and not well evaluated. Reproductive: Partially calcified 2 cm uterine fibroid. AMARILIS MICHAELS | Preliminary Radiology Report ATTENDANT LODGING FACILITIES (QA) DISCREPANCY? If there is a discrepancy between the preliminary and final interpretation, please notify [facility] via [email or web address]. If you do not have access to our QA portal, call our QA team at [phone] CONFIDENTIALITY STATEMENT This report is intended only for the use of the referring physician, and only in accordance with law, If you received this in error, call [phone] Page 2 of 2 ABDOMEN and PELVIS: Intraperitoneal space: Unremarkable. No free air. No significant fluid collection. Bones/joints: No acute osseous abnormality. Soft tissues: No soft tissue swelling. Vasculature: Significantly limited assessment of the vasculature without contrast. Diffuse atherosclerotic calcifications. No aortic aneurysm. Lymph nodes: No enlarged lymph nodes. IMPRESSION: 1. Limited examination. 2. Fecal impaction of the rectum. Mild perirectal edema suspicious for stercoral colitis. 3. Nonobstructing right renal stones. Thank you for allowing us to participate in the care of your patient. Dictated and Authenticated by: Cruz Cabrera MD 03/23/2018 8:12 PM Eastern Time ([place] & [place]) Disposition - Clinical Impression Clinical Impression: Constipation - POA Present On Arrival: None - Disposition Referrals: Jon Enciso MD [Family Provider] - Disposition: Routine/Home Disposition Time: 20:33 Condition: STABLE Instructions: Constipation in Adults Forms: [facility] (K[place]akh)"
[2018-03-23 20:49] VITALS: BP 142/74; PULSE 70; RESP 17; TEMP 98.5
--- NOTE | 2018-03-24 11:26 | CT ---
PROCEDURE: CT Abdomen and Pelvis without Oral or IV contrast. HISTORY: abdominal pain constipation COMPARISON: None available TECHNIQUE: Contiguous axial images of the abdomen and pelvis. No oral or IV contrast administered. Coronal and Sagittal reformats generated and reviewed. Radiation dose: Total exam DLP = 764.41 mGy-cm. This CT exam was performed using one or more of the following dose reduction techniques: Automated exposure control, adjustment of the mA and/or kV according to patient size, and/or use of iterative reconstruction technique. FINDINGS: There is limited evaluation of the solid organs without the administration of IV contrast. LOWER THORAX: Bibasilar atelectasis. No visible pleural effusion or pneumothorax. Coronary artery calcifications. Small hiatal hernia/distal esophageal wall thickening. LIVER: Unremarkable unenhanced appearance. GALLBLADDER AND BILE DUCTS: Cholecystectomy. PANCREAS: Unremarkable unenhanced appearance. SPLEEN: Unremarkable unenhanced appearance. ADRENALS: Unremarkable unenhanced appearance. KIDNEYS AND URETERS: Nonobstructing punctate right renal calculi. No hydronephrosis or obstructing renal calculus. BLADDER: Decompressed thick walled urinary bladder limits evaluation. REPRODUCTIVE: Uterus is present and contains numerous coarse calcifications consistent with degenerating fibroid measuring approximately 2 cm. APPENDIX: Provided history indicates appendectomy, however there is evidence of an appendix within normal limits of caliber. No secondary signs of acute appendicitis. BOWEL: The stomach is nondistended. Lack of oral contrast limits evaluation for bowel pathology. No evidence of small-bowel obstruction. Fecal impaction of the rectum. Mild perirectal edema suspicious stercoral colitis. PERITONEUM: No significant free fluid. No definite free air. LYMPH NODES: No bulky lymphadenopathy identified. VASCULATURE: Atherosclerotic calcifications of the aorta and branches. No aortic aneurysm. BONES: Degenerative changes. Osseous demineralization. OTHER FINDINGS: None. IMPRESSION: Limited study. Fecal impaction of the rectum. Mild perirectal edema suspicious for stercoral colitis. Nonobstructing right renal calculi. Additional findings as above. Preliminary impression was provided by virtual radiologic.
[2018-03-25 17:14] VITALS: O2SAT 97
== END 2018-03-23 20:48 | disposition home or self-care (01) ==
LOC: SUPCPDRO 17:25 → H.ER 17:25
DX: K59.09 Other constipation (principal); D25.9 Leiomyoma of uterus, unspecified; N20.0 Calculus of kidney; E11.9 Type 2 diabetes mellitus without complications; E78.00 Pure hypercholesterolemia, unspecified; F02.80 Dementia in other diseases classified elsewhere, unspecified severity, without behavioral disturbance, psychotic disturbance, mood disturbance, and anxiety; G30.9 Alzheimer's disease, unspecified; I10 Essential (primary) hypertension; Z79.4 Long term (current) use of insulin